=== PATIENT | male | born 1990 | race Caucasian/White ===

== ENCOUNTER 2016-10-15 22:08 | Emergency (ER) | payer BC, OTHER, SELFPAY ==
[~2016-10-15] VITALS: Ht 167.6 cm; Wt 106.0 kg
[2016-10-15 22:15] VITALS: BP 132/81
[2016-10-15] MEDS ORDERED: KETOROLAC 30 MG/1 ML ONE (23:14)
[2016-10-15] MEDS ORDERED: HYDROcodone/APAP 5/325 TABLET ONE (23:14)
[2016-10-15] MEDS ORDERED: KETOROLAC 30 MG/1 ML IM ONE (23:30)
[2016-10-15] MEDS ORDERED: HYDROcodone/APAP 5/325 TABLET PO ONE (23:30)
== END 2016-10-15 23:53 | disposition home or self-care (01) ==
LOC: ED 23:42
DX: S33.5XXA Sprain of ligaments of lumbar spine, initial encounter (principal); X58.XXXA Exposure to other specified factors, initial encounter; Y93.89 Activity, other specified; Y99.8 Other external cause status; Y92.89 Other specified places as the place of occurrence of the external cause
CPT/HCPCS: 81003; 96372; 99283; J1885

== ENCOUNTER 2017-04-28 22:03 | Emergency (ER) | payer BC ==
[~2017-04-28] VITALS: Ht 165.1 cm; Wt 102.2 kg
[2017-04-28] MEDS ORDERED: SODIUM CHLORIDE FLUSH 10ML SYR IVF ONE (23:00)
[2017-04-28] MEDS ORDERED: DOCUSATE 50 MG/5 ML ORAL SOL OT ONE (23:00)
[2017-04-28] MEDS ORDERED: SODIUM CHLORIDE 0.9% 1,000ML IVBOLUS ONE (23:00)
[2017-04-28] MEDS ORDERED: DOCUSATE 50 MG/5 ML, 10ML UDC ONE (23:43)
[2017-04-29] MEDS ORDERED: KETOROLAC 30 MG/1 ML ONE (00:52)
[2017-04-29] MEDS ORDERED: DEXAMETHASONE 4 MG/ML, 5ML ONE (00:52)
[2017-04-29 00:59] VITALS: BP 124/76
[2017-04-29] MEDS ORDERED: DEXAMETHASONE 4 MG/ML, 1ML IVPush ONE (01:00)
[2017-04-29] MEDS ORDERED: KETOROLAC 30 MG/1 ML IVPush ONE (01:00)
== END 2017-04-29 01:06 | disposition home or self-care (01) ==
LOC: ED 23:49
DX: R19.7 Diarrhea, unspecified (principal); H61.23 Impacted cerumen, bilateral; B34.9 Viral infection, unspecified
CPT/HCPCS: 71046; 96361; 96374; 96375; 99284; J1100; J1885; J7030

== ENCOUNTER 2017-10-04 23:53 | Inpatient (IN) | payer BC ==
[~2017-10-04] VITALS: Ht 167.6 cm; Wt 109.6 kg
[2017-10-05] MEDS ORDERED: KETOROLAC 30 MG/1 ML IM ONE (00:30)
[2017-10-05] MEDS ORDERED: ACETAMINOPHEN 500 MG TABLET PO ONE (00:30)
[2017-10-05] MEDS ORDERED: SODIUM CHLORIDE 0.9% 1,000ML IVBOLUS ONE ×2 (00:30→03:30)
[2017-10-05] MEDS ORDERED: SODIUM CHLORIDE FLUSH 10ML SYR IVF ONE (00:30)
[2017-10-05 00:35] LABS: BASOPHILS # (AUTO) 0.01 x10^3/uL (0-0.1); BASOPHILS % (AUTO) 0 % (0-1); EOSINOPHILS # (AUTO) 0.26 x10^3/uL (0-0.4); EOSINOPHILS % (AUTO) 3 % (1-7); LYMPHOCYTES # (AUTO) 0.83 x10^3/uL (1-3.4); LYMPHOCYTES % (AUTO) 8 % (22-44); MD NO; MEAN CORPUSCULAR HEMOGLOBIN 29.6 pg (27.5-34.5); MEAN CORPUSCULAR VOLUME 86.9 fL (81-97); MEAN PLATELET VOLUME 9.4 fL (7.4-10.4); MONOCYTES # (AUTO) 0.64 x10^3/uL (0.2-0.8); MONOCYTES % (AUTO) 6 % (2-9); NEUTROPHILS # (AUTO) 8.44 x10^3/uL (1.8-6.8); NEUTROPHILS % (AUTO) 83 % (42-75); PLATELET COUNT 195 x10^3/uL (130-400); RED BLOOD COUNT 5.47 x10^6/uL (4.38-5.82); RED CELL DISTRIBUTION WIDTH 12.4 % (9.4-14.8)
[2017-10-05] MEDS ORDERED: ACETAMINOPHEN 500 MG TABLET ONE (00:36)
[2017-10-05] MEDS ORDERED: KETOROLAC 30 MG/1 ML ONE (00:36)
[2017-10-05 00:41] LABS: ALANINE AMINOTRANSFERASE 80 U/L (12-78); ALBUMIN 4.1 g/dL (3.4-5.0); ANION GAP 7 mmol/L (5-15); CALCIUM 8.8 mg/dL (8.5-10.1); CHLORIDE 104 mmol/L (98-107); CREATININE 1.34 mg/dL (0.7-1.3)
[2017-10-05 00:45] LABS: ALKALINE PHOSPHATASE 101 U/L (45-117); BILIRUBIN,TOTAL 0.4 mg/dL (0.2-1.0); TROPONIN I < 0.015 ng/mL (0.000-0.045)
[2017-10-05] MEDS ORDERED: OMNIPAQUE 350 MG/ML, 100ML BOTTLE ONE (01:30)
[2017-10-05 02:40] LABS: T4 (THYROXINE) 9.6 mcg/dL (4.5-12.1)
[2017-10-05 02:48] LABS: THYROID STIMULATING HORMONE 2.07 mIU/L (0.358-3.740)
[2017-10-05 04:06] VITALS: BP 122/81
[2017-10-05] MEDS ORDERED: SODIUM CHLORIDE 0.9% 1,000 ML IV SCH (04:17)
[2017-10-05] MEDS ORDERED: POLYETHYLENE GLYCOL 17 GM PACKET PO PRN (04:30)
[2017-10-05] MEDS ORDERED: BISACODYL 10 MG SUPP PR PRN (04:30)
[2017-10-05] MEDS ORDERED: NITROGLYCERIN 0.4 MG BOTTLE (25 TABS) SL PRN (04:30)
[2017-10-05] MEDS ORDERED: ONDANSETRON 2MG/ML, 2ML IVPush PRN (04:30)
[2017-10-05] MEDS ORDERED: PROMETHAZINE 25 MG/ML, 1ML IM PRN (04:30)
[2017-10-05] MEDS ORDERED: ENALAPRILAT 1.25 MG/ML, 2ML IVPush PRN (04:30)
[2017-10-05] MEDS ORDERED: LABETALOL 5MG/ML, 20ML IVPush PRN (04:30)
[2017-10-05] MEDS ORDERED: DOCUSATE 100 MG CAPSULE PO PRN (04:30)
[2017-10-05] MEDS ORDERED: POTASSIUM CHLORIDE 20 MEQ TAB.ER.PRT PO ONE (04:30)
[2017-10-05] MEDS ORDERED: morphine SULFATE 10 MG/ML, 1ML IVPush PRN (04:30)
[2017-10-05] MEDS ORDERED: ONDANSETRON ODT 4 MG PO PRN (04:30)
[2017-10-05] MEDS: HEPARIN 5,000 UNITS/ML, 1ML SQ SCH ×3 (04:53→20:16)
[2017-10-05] MEDS: CEFTRIAXONE PMX 2GM/50ML 50 ML IV SCH (04:53)
[2017-10-05] MEDS: ASPIRIN 325 MG TABLET EC PO SCH (04:53)
[2017-10-05 07:05] VITALS: BP 94/57
[2017-10-05 07:11] LABS: TROPONIN I < 0.015 ng/mL (0.000-0.045)
[2017-10-05 07:16] LABS: HEMOGLOBIN A1C 5.7 % (4.2-6.3)
[2017-10-05 07:45] LABS: AMPHETAMINE SCREEN, URINE Negative (Negative); BARBITURATE SCREEN, URINE Negative (Negative); BENZODIAZEPINE SCREEN, URINE Negative (Negative); CANNABINOID SCREEN, URINE Negative (Negative); COCAINE SCREEN, URINE Negative (Negative); METHADONE SCREEN, URINE Negative (Negative); OPIATE SCREEN, URINE Negative (Negative)
[2017-10-05 08:19] LABS: MICROSCOPIC NOT IND
[2017-10-05 08:33] LABS: CULTURE INDICATED? NO
[2017-10-05] MEDS: ACETAMINOPHEN 325 MG TABLET PO PRN ×3 (08:58→18:48)
[2017-10-05] MEDS: DOXYCYCLINE 100MG TABLET PO SCH ×2 (09:24→20:16)
[2017-10-05] MEDS ORDERED: MAGNESIUM SULFATE PMX 2GM/50ML 50 ML IV ONE (10:30)
[2017-10-05 13:28] LABS: ANION GAP 7 mmol/L (5-15); CALCIUM 7.8 mg/dL (8.5-10.1); CHLORIDE 108 mmol/L (98-107); CREATININE 1.08 mg/dL (0.7-1.3)
[2017-10-05 13:32] LABS: TROPONIN I < 0.015 ng/mL (0.000-0.045)
[2017-10-05 13:56] VITALS: BP 100/65
[2017-10-05] MEDS: SODIUM CHLORIDE 0.9% 1,000 ML IV SCH ×2 (15:32→23:17)
[2017-10-05 18:56] VITALS: BP 111/71
[2017-10-05] MEDS ORDERED: KETOROLAC 30 MG/1 ML IVPush ONE (20:30)
[2017-10-06 01:06] VITALS: BP 102/65
[2017-10-06] MEDS: ACETAMINOPHEN 325 MG TABLET PO PRN ×2 (01:52→12:13)
[2017-10-06] MEDS ORDERED: SODIUM CHLORIDE 0.9% 1,000 ML IV SCH (04:17)
[2017-10-06] MEDS: HEPARIN 5,000 UNITS/ML, 1ML SQ SCH ×3 (04:30→20:20)
[2017-10-06] MEDS: CEFTRIAXONE PMX 2GM/50ML 50 ML IV SCH (04:49)
[2017-10-06] MEDS: ASPIRIN 325 MG TABLET EC PO SCH (04:51)
[2017-10-06 05:17] LABS: CHLORIDE 109 mmol/L (98-107)
[2017-10-06 05:18] LABS: BASOPHILS # (AUTO) 0.01 x10^3/uL (0-0.1); BASOPHILS % (AUTO) 0 % (0-1); EOSINOPHILS # (AUTO) 0.03 x10^3/uL (0-0.4); EOSINOPHILS % (AUTO) 1 % (1-7); LYMPHOCYTES # (AUTO) 0.76 x10^3/uL (1-3.4); LYMPHOCYTES % (AUTO) 13 % (22-44); MD NO; MEAN CORPUSCULAR HEMOGLOBIN 29.4 pg (27.5-34.5); MEAN CORPUSCULAR HGB CONC 33.9 g/dL (33.2-36.2); MEAN CORPUSCULAR VOLUME 86.9 fL (81-97); MEAN PLATELET VOLUME 9.3 fL (7.4-10.4); MONOCYTES # (AUTO) 0.68 x10^3/uL (0.2-0.8); MONOCYTES % (AUTO) 11 % (2-9); NEUTROPHILS # (AUTO) 4.55 x10^3/uL (1.8-6.8); NEUTROPHILS % (AUTO) 75 % (42-75); PLATELET COUNT 154 x10^3/uL (130-400); RED BLOOD COUNT 4.95 x10^6/uL (4.38-5.82); RED CELL DISTRIBUTION WIDTH 12.2 % (9.4-14.8)
[2017-10-06 05:32] LABS: ALANINE AMINOTRANSFERASE 58 U/L (12-78); ALBUMIN 3.1 g/dL (3.4-5.0); ALKALINE PHOSPHATASE 63 U/L (45-117); ANION GAP 8 mmol/L (5-15); BILIRUBIN,TOTAL 0.5 mg/dL (0.2-1.0); CALCIUM 7.9 mg/dL (8.5-10.1); CHOLESTEROL, TOTAL 112 mg/dL (140-239); CREATININE 0.95 mg/dL (0.7-1.3); HDL CHOL % 25 % (26-37); HDL CHOLESTEROL (DIRECT) 28 mg/dL (40-60); LDL CHOLESTEROL,CALCULATED 65 mg/dL (54-169); LDL/HDL RATIO 2.3 (0.5-3.0); TOTAL PROTEIN 6.5 g/dL (6.4-8.2); TRIGLYCERIDES 96 mg/dL (50-200); VLDL CHOLESTEROL 19 mg/dL (0-25)
[2017-10-06 07:20] VITALS: BP 111/73
[2017-10-06] MEDS: SODIUM CHLORIDE 0.9% 1,000 ML IV SCH ×3 (07:48→22:50)
[2017-10-06] MEDS: DOXYCYCLINE 100MG TABLET PO SCH ×2 (07:48→20:20)
[2017-10-06] MEDS: KETOROLAC 30 MG/1 ML IVPush PRN ×2 (07:49→22:50)
[2017-10-06 12:35] VITALS: BP 106/68
[2017-10-06 19:47] VITALS: BP 104/69
[2017-10-07 01:17] VITALS: BP 127/76
[2017-10-07] MEDS: ASPIRIN 325 MG TABLET EC PO SCH (05:02)
[2017-10-07] MEDS: CEFTRIAXONE PMX 2GM/50ML 50 ML IV SCH (05:02)
[2017-10-07] MEDS: HEPARIN 5,000 UNITS/ML, 1ML SQ SCH (05:02)
[2017-10-07] MEDS: SODIUM CHLORIDE 0.9% 1,000 ML IV SCH ×2 (05:02→10:30)
[2017-10-07 07:34] VITALS: BP 99/61
[2017-10-07] MEDS: DOXYCYCLINE 100MG TABLET PO SCH (07:58)
== END 2017-10-07 11:33 | disposition home or self-care (01) | DRG 871 ==
LOC: ED 23:59 → EDIP 10-05 03:07 → 4EST 10-05 04:01 → DCLOUNGE 10-07 11:21
PROVIDERS: ADMIT Internal Medicine; ATTEND Internal Medicine
DX: A41.9 Sepsis, unspecified organism (principal); N17.0 Acute kidney failure with tubular necrosis; R07.89 Other chest pain; E83.42 Hypomagnesemia; E87.6 Hypokalemia; K52.9 Noninfective gastroenteritis and colitis, unspecified; M54.9 Dorsalgia, unspecified; B34.9 Viral infection, unspecified; R91.1 Solitary pulmonary nodule; Z83.3 Family history of diabetes mellitus; Z90.49 Acquired absence of other specified parts of digestive tract
CPT/HCPCS: 36415; 71045; 71275; 80048; 80053; 80061; 80307; 81003; 83036; 83605; 83735; 84145; 84436; 84443; 84484; 85025; 85379; 87040; 93005; 93306; 96360; 96372; J0696; J1644; J1885; J2405; Q9967; J3475; J7030

== ENCOUNTER 2017-11-04 14:59 | Emergency (ER) | payer BC ==
[~2017-11-04] VITALS: Ht 167.6 cm; Wt 106.4 kg
[2017-11-04] MEDS ORDERED: ASPIRIN 81 MG TABLET CHEW PO ONE (15:30)
[2017-11-04 15:47] LABS: BASOPHILS # (AUTO) 0.08 x10^3/uL (0-0.1); BASOPHILS % (AUTO) 1 % (0-1); EOSINOPHILS # (AUTO) 0.45 x10^3/uL (0-0.4); EOSINOPHILS % (AUTO) 6 % (1-7); LYMPHOCYTES # (AUTO) 1.93 x10^3/uL (1-3.4); LYMPHOCYTES % (AUTO) 25 % (22-44); MD NO; MEAN CORPUSCULAR HEMOGLOBIN 29.7 pg (27.5-34.5); MEAN CORPUSCULAR HGB CONC 33.4 g/dL (33.2-36.2); MEAN CORPUSCULAR VOLUME 88.9 fL (81-97); MEAN PLATELET VOLUME 9.6 fL (7.4-10.4); MONOCYTES % (AUTO) 8 % (2-9); NEUTROPHILS # (AUTO) 4.68 x10^3/uL (1.8-6.8); NEUTROPHILS % (AUTO) 60 % (42-75); PLATELET COUNT 194 x10^3/uL (130-400); RED BLOOD COUNT 5.62 x10^6/uL (4.38-5.82); RED CELL DISTRIBUTION WIDTH 12.5 % (9.4-14.8)
[2017-11-04 15:57] LABS: ALBUMIN 3.6 g/dL (3.4-5.0); ANION GAP 7 mmol/L (5-15); CALCIUM 8.5 mg/dL (8.5-10.1); CHLORIDE 105 mmol/L (98-107); CREATININE 1.09 mg/dL (0.7-1.3)
[2017-11-04 16:01] LABS: TROPONIN I < 0.015 ng/mL (0.000-0.045)
[2017-11-04] MEDS ORDERED: ASPIRIN 81 MG TABLET CHEW ONE ×2 (16:39→16:41)
[2017-11-04 18:05] VITALS: BP 120/73
== END 2017-11-04 18:55 | disposition home or self-care (01) ==
LOC: ED 18:11
DX: R07.89 Other chest pain (principal); R50.9 Fever, unspecified; M79.89 Other specified soft tissue disorders; Z90.89 Acquired absence of other organs
CPT/HCPCS: 36415; 71046; 80048; 82040; 84484; 85025; 85379; 93005; 99285

== ENCOUNTER 2018-04-03 18:47 | Emergency (ER) | payer BC ==
[~2018-04-03] VITALS: Ht 167.6 cm; Wt 108.0 kg
[2018-04-03] MEDS ORDERED: IBUPROFEN 800 MG TABLET PO ONE (19:05)
[2018-04-03] MEDS ORDERED: ACETAMINOPHEN 500 MG TABLET ONE (19:10)
[2018-04-03] MEDS ORDERED: IBUPROFEN 200 MG TABLET ONE (19:10)
[2018-04-03] MEDS ORDERED: ALBUTEROL SULFATE 2.5 MG/3 ML ONE (19:21)
[2018-04-03] MEDS ORDERED: ACETAMINOPHEN 500 MG TABLET PO ONE (19:30)
[2018-04-03] MEDS ORDERED: SODIUM CHLORIDE FLUSH 10ML SYR IVF ONE (19:30)
--- NOTE | 2018-04-03 19:30 | NUR ---
PT SITTING UP IN [facility], [facility]. PWD. PT CO COUGH X ONE MONTH, DEVELOPED SUBJECTIVE FEVER TWO DAYS AGO. PT ARRIVES FEBRILE AND TACHYCARDIC. PT MEDICATED PER EMAR. IV ESTABLISHED, LABS DRAWN, BC X1 DRAWN W/ IV START. IVF HUNG. LAB IN TO DRAW SECOND BC. ERP AT BEDSIDE FOR INITIAL ASSESSMENT. SO AT BEDSIDE. BP/SPO2 MONITORING IN PLACE.
[2018-04-03 19:37] LABS: BASOPHILS # (AUTO) 0.02 x10^3/uL (0-0.1); BASOPHILS % (AUTO) 0 % (0-1); EOSINOPHILS # (AUTO) 0.16 x10^3/uL (0-0.4); EOSINOPHILS % (AUTO) 2 % (1-7); LYMPHOCYTES # (AUTO) 0.78 x10^3/uL (1-3.4); LYMPHOCYTES % (AUTO) 10 % (22-44); MD NO; MEAN CORPUSCULAR HGB CONC 34.2 g/dL (33.2-36.2); MEAN CORPUSCULAR VOLUME 87.9 fL (81-97); MEAN PLATELET VOLUME 9.6 fL (7.4-10.4); MONOCYTES # (AUTO) 0.87 x10^3/uL (0.2-0.8); MONOCYTES % (AUTO) 11 % (2-9); NEUTROPHILS # (AUTO) 6.08 x10^3/uL (1.8-6.8); NEUTROPHILS % (AUTO) 77 % (42-75); PLATELET COUNT 172 x10^3/uL (130-400); RED BLOOD COUNT 5.38 x10^6/uL (4.38-5.82); RED CELL DISTRIBUTION WIDTH 12.9 % (9.4-14.8)
[2018-04-03] MEDS ORDERED: DEXAMETHASONE 4 MG TABLET ONE (19:38)
[2018-04-03 19:52] LABS: ALBUMIN 3.8 g/dL (3.4-5.0); ANION GAP 5 mmol/L (5-15); CALCIUM 8.4 mg/dL (8.5-10.1); CHLORIDE 107 mmol/L (98-107)
--- NOTE | 2018-04-03 19:53 | NUR ---
RT REPORTS PT VOMITED X1 AFTER BREATHING TX. PT DENIES NAUSEA/ABD PAIN AT THIS TIME. ERP AWARE. PT AWARE THAT ADDITIONAL MEDICATION HAS BEEN ORDERED PO AND AGREES TO TAKE. DECADRON ADMINISTERED.
[2018-04-03] MEDS ORDERED: OMEP10CA4 PO (19:54)
[2018-04-03 19:55] LABS: ALANINE AMINOTRANSFERASE 119 U/L (12-78); ALKALINE PHOSPHATASE 84 U/L (45-117); BILIRUBIN,TOTAL 0.7 mg/dL (0.2-1.0); CREATININE 1.18 mg/dL (0.7-1.3); TOTAL PROTEIN 7.6 g/dL (6.4-8.2)
[2018-04-03] MEDS ORDERED: DEXAMETHASONE 4 MG TABLET PO ONE (20:00)
[2018-04-03 20:04] LABS: RAPID INFLUENZA A Negative (Negative); RAPID INFLUENZA B Negative (Negative)
[2018-04-03] MEDS ORDERED: SODIUM CHLORIDE 0.9% 1,000ML IVBOLUS ONE (20:30)
[2018-04-03 20:47] VITALS: BP 107/50
--- NOTE | 2018-04-03 20:48 | NUR ---
PT RESTING ON DIANA GALVEZ NOTED. PT REPORTS FEELING BETTER AFTER BREATHING TX AND MEDICATIONS. IMPROVEMENT IN TEMP NOTED. CHART UP FOR RECHECK.
--- NOTE | 2018-04-03 21:29 | NUR ---
DC EDUCATION PROVIDED, PT DEMONSTRATES UNDERSTANDING. SPACER PROVIDED AND EDUCATED ON USE. PT AMBUALTED STEADILY TO DC WITH SO AND RN. SO TO TRANSPORT PT HOME.
== END 2018-04-03 21:31 | disposition home or self-care (01) ==
LOC: ED 19:40
DX: J15.9 Unspecified bacterial pneumonia (principal); Z90.89 Acquired absence of other organs
CPT/HCPCS: 36415; 71046; 80053; 83605; 84145; 85025; 87040; 87400; 93005; 94640; 99284; J7030

== ENCOUNTER 2018-09-06 21:17 | Emergency (ER) | payer BC ==
[~2018-09-06] VITALS: Ht 167.6 cm; Wt 104.9 kg
[~2018-09-06 21:17] MED LIST: OMEP10CA4 PO
--- NOTE | 2018-09-06 21:29 | NUR ---
PT ARRIVES TO ED WITH C/O LOWER BACK PAIN WITH INCREASED IN PAIN LEVEL THE PAST FEW DAYS. PT REPORTS THAT HE DOES NOT HAVE ANY BLOOD IN URINE. DOES HAVE SOME PAIN WITH URINATION. DOES NOT HAVE ANY OTHER SYMPTOMS AT THIS TIME. PT ASKED TO STAY IN BED AND ASKED FOR UA. PT WILLING TO PROVIDE ONCE HE CAN URINATE. PT CONNECTED TO ALL MONITORS AND CALL LIGHT IN REACH. NO S/SX OF TRUAMA.
--- NOTE | 2018-09-06 21:42 | NUR ---
UA COLLECTED AND SENT TO LAB.
--- NOTE | 2018-09-06 21:47 | NUR ---
BEDSIDE REPORT TO ZARA
[2018-09-06 21:54] LABS: MICROSCOPIC NOT IND
--- NOTE | 2018-09-06 21:56 | NUR ---
ASSUMED CARE OF PATIENT. REPORT GIVEN FROM FAIZA MCCALL. PT IN CT.
[2018-09-06 21:57] LABS: CULTURE INDICATED? NO
[2018-09-06 22:39] VITALS: BP 113/68
== END 2018-09-06 22:48 | disposition home or self-care (01) ==
LOC: ED 22:38
DX: N23 Unspecified renal colic (principal)
CPT/HCPCS: 74176; 81003; 99284

== ENCOUNTER 2019-04-21 14:46 | Emergency (ER) | payer BC ==
[~2019-04-21] VITALS: Ht 170.2 cm; Wt 109.7 kg
[~2019-04-21 14:46] MED LIST changes: -OMEP10CA4 PO; +OMEP10CA5 PO
[2019-04-21 15:53] LABS: MICROSCOPIC NOT IND
[2019-04-21 15:57] LABS: CULTURE INDICATED? NO
[2019-04-21 15:57] LABS: BASOPHILS # (AUTO) 0.02 x10^3/uL (0-0.1); BASOPHILS % (AUTO) 0 % (0-1); EOSINOPHILS # (AUTO) 0.29 x10^3/uL (0-0.4); EOSINOPHILS % (AUTO) 5 % (1-7); LYMPHOCYTES # (AUTO) 1.44 x10^3/uL (1-3.4); LYMPHOCYTES % (AUTO) 25 % (22-44); MD NO; MEAN CORPUSCULAR HEMOGLOBIN 29.5 pg (27.5-34.5); MEAN CORPUSCULAR HGB CONC 33.5 g/dL (33.2-36.2); MEAN CORPUSCULAR VOLUME 87.8 fL (81-97); MEAN PLATELET VOLUME 9.4 fL (7.4-10.4); MONOCYTES # (AUTO) 0.85 x10^3/uL (0.2-0.8); MONOCYTES % (AUTO) 15 % (2-9); NEUTROPHILS % (AUTO) 55 % (42-75); PLATELET COUNT 179 x10^3/uL (130-400); RED BLOOD COUNT 5.62 x10^6/uL (4.38-5.82); RED CELL DISTRIBUTION WIDTH 12.4 % (9.4-14.8)
[2019-04-21 16:01] LABS: ALANINE AMINOTRANSFERASE 87 U/L (12-78); ALBUMIN 3.6 g/dL (3.4-5.0); ANION GAP 4 mmol/L (5-15); CALCIUM 8.7 mg/dL (8.5-10.1); CHLORIDE 107 mmol/L (98-107); CREATININE 1.12 mg/dL (0.7-1.3)
[2019-04-21 16:04] LABS: ALKALINE PHOSPHATASE 88 U/L (45-117); BILIRUBIN,TOTAL 0.3 mg/dL (0.2-1.0); TOTAL PROTEIN 7.6 g/dL (6.4-8.2)
--- NOTE | 2019-04-21 16:48 | NUR ---
assumed care of pt. pt here c/o diffuse abd pain x3 days. denies N/V/D. also c/o R flank pain and SALEH. no tx [facility] ACQU[facility]ION. diffuse abd tenderness. no family at bedside. Dr Licona at bedside for eval
--- NOTE | 2019-04-21 17:20 | NUR ---
pt to RAD
[2019-04-21] MEDS ORDERED: KETOROLAC 60 MG/2 ML IM ONE (17:30)
[2019-04-21] MEDS ORDERED: KETOROLAC 60 MG/2 ML ONE (17:34)
--- NOTE | 2019-04-21 18:01 | NUR ---
pt reports that he has had some relief of abd pain after medication to 07/31 from 10/31. reports no change in SALEH
[2019-04-21 18:40] VITALS: BP 118/70
== END 2019-04-21 19:01 | disposition home or self-care (01) ==
LOC: ED 16:00
DX: R10.84 Generalized abdominal pain (principal); Z90.49 Acquired absence of other specified parts of digestive tract
CPT/HCPCS: 36415; 74176; 76700; 80053; 81003; 83690; 85025; 96372; 99284; J1885

== ENCOUNTER 2019-05-07 23:14 | Emergency (ER) | payer BC ==
[~2019-05-07] VITALS: Ht 167.6 cm; Wt 104.0 kg
[2019-05-07] MEDS ORDERED: PROMETHAZINE 25 MG/ML, 1ML ONE (23:26)
[2019-05-07] MEDS ORDERED: ONDANSETRON 2MG/ML, 2ML ONE (23:26)
[2019-05-07] MEDS ORDERED: PROMETHAZINE 25 MG/ML, 1ML IM ONE (23:30)
[2019-05-07] MEDS ORDERED: ONDANSETRON 2MG/ML, 2ML IVPush ONE (23:30)
[2019-05-07] MEDS ORDERED: SODIUM CHLORIDE 0.9% 1,000ML IVBOLUS ONE (23:30)
[2019-05-07] MEDS ORDERED: SODIUM CHLORIDE FLUSH 10ML SYR IVF ONE (23:30)
[2019-05-07 23:35] LABS: BASOPHILS # (AUTO) 0.03 x10^3/uL (0-0.1); BASOPHILS % (AUTO) 0 % (0-1); EOSINOPHILS # (AUTO) 0.26 x10^3/uL (0-0.4); EOSINOPHILS % (AUTO) 3 % (1-7); LYMPHOCYTES # (AUTO) 2.26 x10^3/uL (1-3.4); LYMPHOCYTES % (AUTO) 24 % (22-44); MD NO; MEAN CORPUSCULAR HEMOGLOBIN 29.7 pg (27.5-34.5); MEAN CORPUSCULAR VOLUME 87.2 fL (81-97); MEAN PLATELET VOLUME 9.6 fL (7.4-10.4); MONOCYTES % (AUTO) 10 % (2-9); NEUTROPHILS # (AUTO) 6.01 x10^3/uL (1.8-6.8); NEUTROPHILS % (AUTO) 63 % (42-75); PLATELET COUNT 198 x10^3/uL (130-400); RED BLOOD COUNT 5.29 x10^6/uL (4.38-5.82); RED CELL DISTRIBUTION WIDTH 12.5 % (9.4-14.8)
[2019-05-07 23:46] LABS: ALANINE AMINOTRANSFERASE 115 U/L (12-78); ANION GAP 9 mmol/L (5-15); CALCIUM 8.8 mg/dL (8.5-10.1); CHLORIDE 105 mmol/L (98-107); CREATININE 1.23 mg/dL (0.7-1.3)
[2019-05-07 23:49] LABS: ALKALINE PHOSPHATASE 85 U/L (45-117); BILIRUBIN,TOTAL 0.4 mg/dL (0.2-1.0); TOTAL PROTEIN 8.1 g/dL (6.4-8.2)
--- NOTE | 2019-05-07 23:51 | NUR ---
THIS IS A 29 YO MALE COMING IN FOR N/V/D X2 DAYS, DENIES ABD PAIN. VOMITING HAS BEEN INTERMITTENT THE PAST 24 HOURS, UNABLE TO EAT OR DRINK ANYTHING. PATIENT DENIES ANY MEDICAL HX, ONLY SURGERY IS APPENDECTOMY. A&OX4, VSS, NAD AT THIS TIME. SPO2 AND BP MONITORING IN PLACE. PIV PLACED, IVF STARTED, MEDICATED PER EMAR, TOLERATED WELL.
[2019-05-08 00:40] VITALS: BP 123/64
--- NOTE | 2019-05-08 00:40 | NUR ---
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
--- NOTE | 2019-05-08 01:03 | NUR ---
PIV REMOVED, PATIENT GIVEN DISCHARGE PAPERWORK AND CONFIRMS UNDERSTANDING OF INSTRUCTIONS. PATIENT AMBULATORY WITH STEADY GAIT TO DISCHARGE ACCOMPANIED BY FAMILY
== END 2019-05-08 01:18 | disposition home or self-care (01) ==
LOC: ED 05-08 01:03
DX: R11.2 Nausea with vomiting, unspecified (principal); R19.7 Diarrhea, unspecified; E86.0 Dehydration
CPT/HCPCS: 36415; 80053; 83690; 85025; 96361; 96372; 96374; 99284; J2405; J2550; J7030